=== PATIENT | male | born 1965 | race African-American/Black ===

== ENCOUNTER 2017-02-22 16:19 | Emergency (ER) | payer MEDICAID ==
--- NOTE | 2017-02-22 17:34 | RAD ---
INDICATION: Right elbow pain. TECHNIQUE: 4 views of the right elbow were obtained. FINDINGS: The bones are in normal alignment. No joint effusion or fracture is seen. There is a mildly prominent bony exostosis arising from the proximal olecranon process in the region of the triceps tendon insertion. There is a small area of linear calcification adjacent to the lateral epicondyle suggestive of calcific tendinitis. IMPRESSION: FINDINGS SUGGESTIVE OF CALCIFIC TENDINITIS.
--- NOTE | 2017-02-22 17:44 | ED ---
Upper Extremity Pain - HPI Summary HPI Summary: PATIENT IS AN OTHERWISE HEALTHY 51YO M WORKING AT THE [employer] ARRIVING HERE WITH NEW ONSET RIGHT ELBOW PAIN. HE STATES IT IS PAINFUL TO FLEX, EXTEND AND ROTATE. PAIN IS WORSE WITH ROTATION AND PALPATION SUPERIOR TO THE ELBOW JOINT. HE DENIES HISTORY OF GOUT, BURSITIS OR PREVIOUS INJURY TO THE ELBOW. HE FEELS THAT HE USES THE ELBOW DOING THE SAME MOTION DAILY AT WORK. PAIN IS WORSE ON THE LATERAL SIDE, AND NO PAIN ON PALPATION ON THE MEDIAL SIDE. DENIES OTHER PAIN OR SYMPTOMS. HE HAS NOT TAKEN ANYTHING FOR RELIEF. DENIES KNOWN TRAUMA OR INJURY TO THE AREA. DENIES REDNESS OR WARMTH AROUND THE AREA. PATIENT IS A SMOKER AND NOT A DIABETIC. - History of Current Complaint Chief Complaint: EDExtremityUpper Stated Complaint: RT ELBOW PAIN Time Seen by Provider: 02/22/17 17:33 Hx Obtained From: Patient Onset/Duration: Started Hours Ago Timing: Constant Severity Initially: Moderate Severity Currently: Moderate Pain Location: Elbow Character: Sharp Aggravating Factor(s): Lifting, Flexion, Extension, Internal/External Rotation Alleviating Factor(s): Nothing Associated Signs & Symptoms: Positive: Negative - Risk Factors Non-Orthopedic Risk Factor: Negative DVT Risk Factors: Negative Septic Arthritis Risk Factor: Negative Compartment Syndrome Risk Factors: Pain - Allergies/Home Medications Allergies/Adverse Reactions: Allergies Allergy/AdvReac Type Severity Reaction Status Date / Time No Known Allergies Allergy Verified 04/16/13 18:39 PMH/Surg Hx/FS Hx/Imm Hx Previously Healthy: Yes Endocrine/Hematology History: Reports: Hx Thyroid Disease - HYPERTHYROIDISM Denies: Hx Diabetes Cardiovascular History: Reports: Hx Angina, Hx Syncope Denies: Hx Coronary Artery Disease, Hx Hypercholesterolemia, Hx Hypertension , Hx Myocardial Infarction, Hx Valvular Heart Disease Respiratory History: Reports: Other Respiratory Problems/Disorders - CURRENT SMOKER Denies: Hx Asthma, Hx Chronic Obstructive Pulmonary Disease (COPD) Infectious Disease History: No Infectious Disease History: Denies: Traveled Outside the [place] in Last 30 Days - Social History Occupation: Employed Full-time Lives: Alone Alcohol Use: None Hx Substance Use: Yes Substance Use Type: Reports: Cocaine Hx Tobacco Use: Yes Review of Systems Constitutional: Negative Cardiovascular: Negative Respiratory: Negative Positive: Arthralgia - RIGHT ELBOW PAIN Skin: Negative Neurological: Negative Psychological: Normal All Other Systems Reviewed And Are Negative: Yes Physical Exam Triage Information Reviewed: Yes Vital Signs On Initial Exam: Initial Vitals Temp Pulse Resp BP Pulse Ox 97.9 F 70 20 158/73 100 02/22/17 16:22 02/22/17 16:22 02/22/17 16:22 02/22/17 16:22 02/22/17 16:22 Vital Signs Reviewed: Yes Appearance: Positive: Well-Appearing, No Pain Distress, Well-Nourished Skin: Positive: Warm, Skin Color Reflects Adequate Perfusion Head/Face: Positive: Normal Head/Face Inspection Neck: Positive: Supple, Nontender, No Lymphadenopathy Respiratory/Lung Sounds: Positive: Clear to Auscultation, Breath Sounds Present Cardiovascular: Positive: Normal, RRR Musculoskeletal: Positive: Limited @ - ROTATING ABOUT THE ELBOW, SUPINATION AND PRONATION WELL FLEXION AND EXTENSION LIMITED D/T PAIN Neurological: Positive: Sensory/Motor Intact, Speech Normal Psychiatric: Positive: Normal AVPU Assessment: Alert Diagnostics - Vital Signs Vital Signs Temp Pulse Resp BP Pulse Ox 02/22/17 16:22 97.9 F 70 20 158/73 100 - Laboratory Lab Statement: Any lab studies that have been ordered have been reviewed, and results considered in the medical decision making process. Course/Dx - Course Course Of Treatment: Patient complaining of extraarticular lateral elbow pain. Pain is exacerbated by contraction and passive flexion of both the wrist extensor muscles or flexor muscles. Denies trauma or injury to the area, but was sent for xray d/t limited ROM. IMPRESSION: FINDINGS SUGGESTIVE OF CALCIFIC TENDINITIS. Patient given instructions for overuse injuries and lateral epicondylitis. Instructions to get elbow brace, reduce repetitive movements, prescribed mobic. Patient will follow up with . - Diagnoses Differential Diagnosis/HQI/PQRI: Positive: Arthritis, Septic Arthritis, Strain, Sprain Provider Diagnoses: Calcific tendinitis Discharge - Discharge Plan Condition: Stable Disposition: HOME Prescriptions: Meloxicam(NF) [Mobic(NF)] 15 mg PO DAILY #30 tab Patient Education Materials: Tennis Elbow (ED), Calcific Tendinitis (ED) Referrals: Alee Delgadillo MD [Primary Care Provider] - Luis A Dubois MD [Medical Doctor] - Additional Instructions: DX: CALCIFIC TENDINITIS OF THE ELBOW I HAVE GIVEN YOU INFORMATION ON TENDINITIS. IT IS FOR THE SHOULDER, BUT YOU MAY APPLY THE SAME CONCEPTS TO THE ELBOW. FOLLOW THOSE INSTRUCTIONS. TRY TO ADAPT HOW YOU USE THE ARM, AND DECREASE THE AMOUNT OF REPETITIVE MOTION. MOBIC PRESCRIBED. TAKE IN THE MORNING. I WILL REFER YOU TO DR. DUBOIS FOR FURTHER EVALUATION. IF YOU CALL TOMORROW, YOU MAY SET UP AN APPT WITH HIS OFFICE. BUY A TENNIS ELBOW BRACE AND WEAR DAILY, ESPECIALLY AT WORK.
[2017-02-22 18:06] VITALS: BP 154/68
== END 2017-02-22 18:55 | disposition home or self-care (01) ==
LOC: ED 16:19
DX: M65.20 Calcific tendinitis, unspecified site (principal); M25.521 Pain in right elbow
CPT/HCPCS: 99282

== ENCOUNTER 2024-06-04 11:01 | Inpatient (IN) ==
[2024-06-04 11:40] LABS: ABS Basophils 0.1 10^3/uL (0.0-0.1); ABS Lymphocytes 1.5 10^3/uL (1.0-4.8); ABS Monocytes 0.7 10^3/uL (0.0-1.1); ABS Nucleated RBC 0.01 10^3/ul; Eosinophil % 0.4 %; Hematocrit 40.9 % (38-53); Hemoglobin 14.1 g/dL (13.2-16.3); Lymphocyte % 13.5 %; Mean Corpuscular Hemoglobin 31.4 pg (27-33); Mean Corpuscular Hgb Conc 34.5 g/dL (31-36); Mean Corpuscular Volume 91.1 fL (80-97); Mean Platelet Volume 8.3 fL (7.5-11.2); Nucleated Red Blood Cells % 0.1 %/100WBC (0.0-0.8); Platelet Count 309 10^3/uL (150-450); Red Cell Distribution Width 13.2 % (12-17); White Blood Count 11.3 10^3/uL (3.6-10.2)
[2024-06-04] MEDS: [UNRECOGNIZED DRUG - REMARK] INTRANASAL ONE (11:43)
[2024-06-04] MEDS: Ondansetron 4 mg VIAL 2 MG/ML 2 ml VIAL IV ONE ×3 (11:44→15:04)
[2024-06-04] MEDS: NS 0.9% 1000 ml BAG 1,000 ML IV ONE (11:44)
[2024-06-04 12:05] LABS: High Sens Troponin Baseline 14 pg/mL (<20)
[2024-06-04 12:22] LABS: INR 1.25 (0.83-1.13)
[2024-06-04 12:46] LABS: ALT 17 U/L (7-52); Acetaminophen < 15 mcg/mL; Albumin 4.4 g/dL (3.2-5.2); Albumin/Globulin Ratio 0.9 (1-3); Alcohol, S < 13 mg/dL (<13); Alkaline Phosphatase 104 U/L (35-149); Anion Gap 14 mmol/L (2-16); Blood Urea Nitrogen 14 mg/dL (6-24); CO2 Carbon Dioxide 28 mmol/L (22-32); Calcium 10.2 mg/dL (8.6-10.3); Chloride 90 mmol/L (101-111); Creatine Kinase 299 U/L (10-223); Glucose 84 mg/dL (70-100); Salicylate < 2.50 mg/dL (<30); Sodium 132 mmol/L (135-145); Total Bilirubin 0.8 mg/dL (0.2-1.0); Total Protein 9.4 g/dL (6.4-8.9); eGFR CKD-EPI 78.3 (>60)
[2024-06-04] MEDS: DICYCLOMINE HCL 10 MG/ML VIAL (20 MG) IM ONE (12:58)
[2024-06-04] MEDS: Dexamethasone IV 4 MG/ML VIAL 1 ml VIAL IV SLOW PU ONE (12:59)
[2024-06-04] MEDS: Droperidol 5 MG/2 ML 2 ML VIAL IV ONE (12:59)
[2024-06-04 13:18] LABS: High Sensitivity Troponin 1 Hr 15 pg/mL (<20)
[2024-06-04] MEDS: Buprenorp/Nalox 4-1 MG FILM SL ONE ×5 (13:23→23:08)
[2024-06-04] MEDS: Diphenoxylat/Atrop 2.5-0.025mg TAB PO ONE (15:04)
[2024-06-04] MEDS: hydrALAZINE 20 mg/ml 1 ML Vial IV IV SLOW PU ONE (16:04)
[2024-06-04 17:11] LABS: C Reactive Protein 6.66 mg/L (<8.01)
[2024-06-04 17:25] LABS: TSH Ultra Thyroid Stim Horm 1.16 mcIU/mL (0.34-5.60)
[2024-06-04 17:26] LABS: Lipase 23 U/L (11.0-82.0)
[2024-06-04] MEDS: NS 0.9% 1000 ml BAG 1,000 ML IV SCH (17:58)
[2024-06-04] MEDS: Lactated Ringers 1000 ml BAG 1,000 ML IV SCH (18:12)
[2024-06-04] MEDS: Enoxaparin 40 MG/0.4 ML SYR SUBCUT SCH (19:43)
[2024-06-04 21:48] LABS: Magnesium 1.6 mg/dL (1.9-2.7)
[2024-06-04] MEDS ORDERED: diazePAM INJ CARPUJECT 5 MG/ML SYRINGE IV PRN (22:29)
[2024-06-04] MEDS: diazePAM INJ CARPUJECT 5 MG/ML SYRINGE IV ONE (22:33)
[2024-06-04] MEDS ORDERED: Lorazepam PYXIS KEY PRN (23:48)
[2024-06-05] MEDS: BUPRENORPHINE HCL IV ONE (00:05)
[2024-06-05] MEDS: NS IV ONE (00:05)
[2024-06-05] MEDS: Ondansetron 4 mg VIAL 2 MG/ML 2 ml VIAL IV PRN (01:16)
[2024-06-05] MEDS: LORazepam 2 mg VIAL 1 ml IV PUSH PRN (01:19)
[2024-06-05] MEDS: hydrALAZINE 20 mg/ml 1 ML Vial IV IV SLOW PU PRN ×4 (01:41→19:19)
[2024-06-05] MEDS: hydrALAZINE 20 mg/ml 1 ML Vial IV ONE (02:16)
[2024-06-05] MEDS: Acetaminophen IV 1 GM/100ML 1,000 MG/100 ML BAG IV ONE (04:48)
[2024-06-05] MEDS: cloNIDine 0.1 MG PATCH 0.1 MG/24 HR 7 DAY PATCH TRANSDERM SCH (05:32)
[2024-06-05 06:22] LABS: Hematocrit 35.3 % (38-53); Hemoglobin 12.2 g/dL (13.2-16.3); Mean Corpuscular Hemoglobin 31.2 pg (27-33); Mean Corpuscular Hgb Conc 34.6 g/dL (31-36); Mean Corpuscular Volume 90.2 fL (80-97); Mean Platelet Volume 8.4 fL (7.5-11.2); Platelet Count 269 10^3/uL (150-450); Red Blood Count 3.91 10^6/uL (4.06-5.63); Red Cell Distribution Width 13.1 % (12-17); White Blood Count 12.1 10^3/uL (3.6-10.2)
[2024-06-05 06:32] LABS: Calcium 9.3 mg/dL (8.6-10.3); Creatinine, Serum 1.12 mg/dL (0.67-1.17); Magnesium 1.6 mg/dL (1.9-2.7); Phosphorus 3.4 mg/dL (2.5-5.0); Potassium 3.5 mmol/L (3.5-5.0); eGFR CKD-EPI 76.6 (>60)
[2024-06-05 07:21] LABS: Hepatitis B Surface Antigen Nonreactive (Nonreactive)
[2024-06-05 07:38] LABS: Hepatitis B Surface Ab Not Immune (Immune)
[2024-06-05 07:43] LABS: ABS Lymphocytes 1.1 10^3/uL (1.0-4.8); ABS Monocytes 1.6 10^3/uL (0.0-1.1); ABS Neutrophils 9.5 10^3/uL (1.5-7.6); Lymphocyte % 8.9 %
[2024-06-05] MEDS ORDERED: hydrALAZINE 20 mg/ml 1 ML Vial IV IV SLOW PU PRN (11:33)
[2024-06-05] MEDS: Magnesium Sulfate 2 gm BAG 2 GM/50 ML BAG IVPB ONE (11:59)
[2024-06-05] MEDS: Lactated Ringers 1000 ml BAG 1,000 ML IV SCH (16:17)
[2024-06-06 06:14] LABS: ABS Lymphocytes 1.3 10^3/uL (1.0-4.8); ABS Neutrophils 9.6 10^3/uL (1.5-7.6); ABS Nucleated RBC 0.01 10^3/ul; Hematocrit 35.5 % (38-53); Hemoglobin 11.9 g/dL (13.2-16.3); Lymphocyte % 10.8 %; Mean Corpuscular Hemoglobin 30.7 pg (27-33); Mean Corpuscular Hgb Conc 33.5 g/dL (31-36); Mean Corpuscular Volume 91.8 fL (80-97); Mean Platelet Volume 8.3 fL (7.5-11.2); Nucleated Red Blood Cells % 0.1 %/100WBC (0.0-0.8); Platelet Count 263 10^3/uL (150-450); Red Blood Count 3.87 10^6/uL (4.06-5.63); Red Cell Distribution Width 13.5 % (12-17); White Blood Count 11.9 10^3/uL (3.6-10.2)
[2024-06-06 06:35] LABS: Calcium 8.9 mg/dL (8.6-10.3); Creatinine, Serum 0.86 mg/dL (0.67-1.17); Potassium 3.2 mmol/L (3.5-5.0)
[2024-06-06 07:27] LABS: Magnesium 1.9 mg/dL (1.9-2.7); Phosphorus 3.6 mg/dL (2.5-5.0)
[2024-06-06] MEDS: Potassium Chlor 20 meq TAB.ER PO ONE (08:50)
[2024-06-06] MEDS: Buprenorp/Nalox 4-1 MG FILM SL SCH (11:17)
[2024-06-06 20:40] LABS: Urine Appearance Extra Turbid; Urine Bilirubin Negative (Negative); Urine Blood Negative (Negative); Urine Glucose Negative (Negative); Urine Ketones 1+ (Negative); Urine Nitrite Negative (Negative); Urine Protein Negative (Negative); Urine Specific Gravity 1.013 (1.002-1.030); Urine Urobilinogen 1+ (Negative); Urine pH 7.5 (5.0-8.0)
[2024-06-06 20:51] LABS: Urine Color Light-Yellow
[2024-06-06 21:19] LABS: Urine Benzodiazepine Screen None Detected (None Detect); Urine Cannabinoids Screen None Detected (None Detect); Urine Opiates Screen None Detected (None Detect)
[2024-06-07 06:13] LABS: ABS Lymphocytes 1.3 10^3/uL (1.0-4.8); ABS Monocytes 0.8 10^3/uL (0.0-1.1); ABS Neutrophils 8.6 10^3/uL (1.5-7.6); Eosinophil % 0.2 %; Hematocrit 35.8 % (38-53); Hemoglobin 11.7 g/dL (13.2-16.3); Lymphocyte % 12.4 %; Mean Corpuscular Hemoglobin 30.4 pg (27-33); Mean Corpuscular Hgb Conc 32.7 g/dL (31-36); Mean Corpuscular Volume 92.9 fL (80-97); Mean Platelet Volume 8.4 fL (7.5-11.2); Platelet Count 232 10^3/uL (150-450); Red Blood Count 3.85 10^6/uL (4.06-5.63); Red Cell Distribution Width 13.7 % (12-17); White Blood Count 10.8 10^3/uL (3.6-10.2)
[2024-06-07 06:57] LABS: Creatinine, Serum 0.79 mg/dL (0.67-1.17); Magnesium 1.9 mg/dL (1.9-2.7); Potassium 3.6 mmol/L (3.5-5.0); eGFR CKD-EPI 103.6 (>60)
[2024-06-07] MEDS: Buprenorp/Nalox 8-2 MG FILM SL SCH (10:07)
[2024-06-08 06:38] LABS: ABS Eosinophils 0.1 10^3/uL (0.0-0.5); ABS Monocytes 0.6 10^3/uL (0.0-1.1); ABS Neutrophils 5.1 10^3/uL (1.5-7.6); ABS Nucleated RBC 0.01 10^3/ul; Eosinophil % 1.1 %; Hematocrit 36.9 % (38-53); Hemoglobin 12.6 g/dL (13.2-16.3); Lymphocyte % 25.6 %; Mean Corpuscular Hemoglobin 31.6 pg (27-33); Mean Corpuscular Hgb Conc 34.1 g/dL (31-36); Mean Corpuscular Volume 92.4 fL (80-97); Mean Platelet Volume 8.6 fL (7.5-11.2); Nucleated Red Blood Cells % 0.2 %/100WBC (0.0-0.8); Platelet Count 224 10^3/uL (150-450); Red Blood Count 3.99 10^6/uL (4.06-5.63); Red Cell Distribution Width 13.2 % (12-17); White Blood Count 7.9 10^3/uL (3.6-10.2)
[2024-06-08 06:55] LABS: Magnesium 1.8 mg/dL (1.9-2.7); Phosphorus 2.9 mg/dL (2.5-5.0)
[2024-06-08] MEDS: Magnesium Sulfate 2 gm BAG 2 GM/50 ML BAG IVPB ONE (08:09)
[2024-06-08 08:55] LABS: Albumin 3.5 g/dL (3.2-5.2); Creatinine, Serum 0.65 mg/dL (0.67-1.17); Globulin 3.5 g/dL (2-4); Potassium 3.5 mmol/L (3.5-5.0); Total Bilirubin 0.9 mg/dL (0.2-1.0); eGFR CKD-EPI 109.9 (>60)
[2024-06-08 14:16] VITALS: BP 164/81
[2024-06-09] MEDS ORDERED: Naloxone Nasal Spray 4 MG/0.1 ML NASAL.SPR INTRANASAL ONE (00:35)
== END 2024-06-08 15:07 | disposition home or self-care (01) | DRG 773 ==
LOC: ED 11:01 → EDHOLD 11:01 → MED 21:22
PROVIDERS: ADMIT Student in an Organized Health Care Education/Training Program; ATTEND Student in an Organized Health Care Education/Training Program

== ENCOUNTER 2024-08-16 10:02 | Inpatient (IN) ==
[2024-08-16 10:34] LABS: Hematocrit 49.2 % (38-53); Hemoglobin 16.6 g/dL (13.2-16.3); Mean Corpuscular Hemoglobin 31.1 pg (27-33); Mean Corpuscular Hgb Conc 33.8 g/dL (31-36); Mean Corpuscular Volume 92.3 fL (80-97); Platelet Count 304 10^3/uL (150-450); Red Blood Count 5.33 10^6/uL (4.06-5.63); White Blood Count 31.2 10^3/uL (3.6-10.2)
[2024-08-16] MEDS: Lactated Ringers 1000 ml BAG 1,000 ML IV ONE ×2 (10:57→14:17)
[2024-08-16] MEDS: Acetaminophen IV 1 GM/100ML 1,000 MG/100 ML BAG IV ONE (10:57)
[2024-08-16 11:00] LABS: ABS Basophils 0.1 10^3/uL (0.0-0.1); ABS Monocytes 0.8 10^3/uL (0.0-1.1); ABS Neutrophils 29.3 10^3/uL (1.5-7.6); Eosinophil % 0.1 %; Lymphocyte % 3.1 %
[2024-08-16 11:15] LABS: ALT 10 U/L (7-52); AST 27 U/L (13-39); Albumin 4.9 g/dL (3.2-5.2); Albumin/Globulin Ratio 1.1 (1-3); Alcohol, S < 13 mg/dL (<13); Alkaline Phosphatase 92 U/L (35-149); Anion Gap 20 mmol/L (2-16); Blood Urea Nitrogen 33 mg/dL (6-24); CO2 Carbon Dioxide 27 mmol/L (22-32); Calcium 10.6 mg/dL (8.6-10.3); Chloride 93 mmol/L (101-111); Creatine Kinase 97 U/L (10-223); Creatinine, Serum 1.27 mg/dL (0.67-1.17); Globulin 4.3 g/dL (2-4); Glucose 149 mg/dL (70-100); Potassium 3.9 mmol/L (3.5-5.0); Sodium 140 mmol/L (135-145); Total Protein 9.2 g/dL (6.4-8.9); eGFR CKD-EPI 65.5 (>60)
[2024-08-16] MEDS: Ondansetron 4 mg VIAL 2 MG/ML 2 ml VIAL IV ONE (11:25)
[2024-08-16] MEDS: Iohexol 350 (CONTRAST) 500 ML MDV IV ONE (12:02)
[2024-08-16] MEDS ORDERED: Lorazepam PYXIS KEY PRN (12:44)
[2024-08-16] MEDS ORDERED: Ondansetron 4 mg VIAL 2 MG/ML 2 ml VIAL ONE (12:55)
[2024-08-16] MEDS ORDERED: Lidocaine 1% VIAL 10 MG/ML 30 ML VIAL ONE (13:03)
[2024-08-16] MEDS: LORazepam 2 mg VIAL 1 ml IV PUSH ONE (13:03)
[2024-08-16] MEDS ORDERED: Ampicillin IV 2 GM in NS 0.9% 100 ml BAG 100 ML IVPB ONE (13:53)
[2024-08-16] MEDS: Lidocaine 1% MPF 5 ML VIAL INJ ONE (13:55)
[2024-08-16] MEDS ORDERED: Vancomycin 1,000 MG VIAL IVPB SCH (14:00)
[2024-08-16 14:08] LABS: Body Fluid Source Cerebral Spinal
[2024-08-16 14:12] LABS: Body Fluid Appearance Clear; Body Fluid Color Colorless; CSF Tube # 4
[2024-08-16 14:24] LABS: CSF Glucose 97 mg/dL (40-70)
[2024-08-16] MEDS: cefTRIAXone 2 gm/50 mL D5W 2 GM/50 ML BAG IV ONE (14:31)
[2024-08-16 15:22] LABS: C Reactive Protein 24.11 mg/L (<8.01)
[2024-08-16] MEDS: Labetalol IV 5 MG/ML 20 ml VIAL IV PUSH ONE ×2 (15:34→16:56)
[2024-08-16 15:43] LABS: Folate > 20.00 ng/mL (5.90-24.80)
[2024-08-16] MEDS: Tetan/Diph/Pertus SYR(Tdap) 0.5 ML SYR(BOOSTRIX) use SYR contains LATEX IM ONE (15:43)
[2024-08-16 15:44] LABS: Vitamin B12 707 pg/mL (180-914)
[2024-08-16 15:47] LABS: Body Fluid Mono 19 %; Body Fluid Total Cells Counted 26
[2024-08-16 15:54] LABS: Venous Bicarbonate HCO3 30.7 mmol/L (24-28)
[2024-08-16] MEDS: Ampicillin ADVAN 2 GM in NS 0.9% 100 ML 100 ML IVPB ONE (15:58)
[2024-08-16] MEDS: Pantoprazole VIAL 40 MG VIAL IV ONE (16:00)
[2024-08-16 16:01] LABS: ABS Lymphocytes 0.8 10^3/uL (1.0-4.8); ABS Monocytes 0.9 10^3/uL (0.0-1.1); ABS Neutrophils 16.4 10^3/uL (1.5-7.6); ABS Nucleated RBC 0.01 10^3/ul; Hematocrit 42.3 % (38-53); Hemoglobin 14.1 g/dL (13.2-16.3); Lymphocyte % 4.4 %; Mean Corpuscular Hemoglobin 30.8 pg (27-33); Mean Corpuscular Hgb Conc 33.4 g/dL (31-36); Mean Corpuscular Volume 92.2 fL (80-97); Platelet Count 219 10^3/uL (150-450); Red Blood Count 4.59 10^6/uL (4.06-5.63); Red Cell Distribution Width 13.7 % (12-17); White Blood Count 18.2 10^3/uL (3.6-10.2)
[2024-08-16 16:06] LABS: Urine Appearance Clear; Urine Bacteria Absent /HPF (Absent); Urine Bilirubin Negative (Negative); Urine Blood 2+ (Negative); Urine Color Yellow; Urine Glucose Negative (Negative); Urine Ketones 1+ (Negative); Urine Nitrite Negative (Negative); Urine Protein 2+ (>=100 mg/dL) (Negative); Urine Red Blood Cell 2+(6-10/hpf) /HPF (0-Trace); Urine Specific Gravity >1.050 (1.002-1.030); Urine Squamous Epithelial Cell Present /HPF (Absent); Urine Urobilinogen Negative (Negative); Urine White Blood Cell Absent /HPF (0-Trace)
[2024-08-16] MEDS: MULTIPLE ELECTROLYTES IV ONE (16:07)
[2024-08-16 16:27] LABS: Urine Benzodiazepine Screen Presumptive Positive (None Detect); Urine Cannabinoids Screen None Detected (None Detect); Urine Opiates Screen Presumptive Positive (None Detect)
[2024-08-16] MEDS: Vancomycin 1,250 MG in NS 0.9% 250 ml 250 ML IVPB ONE (16:57)
[2024-08-16] MEDS: Lactated Ringers 1000 ml BAG 1,000 ML IV SCH ×2 (17:06→18:37)
[2024-08-16 17:11] LABS: High Sensitivity Troponin 1 Hr 70 pg/mL (<20)
[2024-08-16] MEDS ORDERED: Sulfur Hexaflouride MICROSPHR 25 MG VIAL IV PRN (17:22)
[2024-08-16] MEDS ORDERED: hydrALAZINE 20 mg/ml 1 ML Vial IV IV SLOW PU PRN (18:00)
[2024-08-16 18:09] LABS: CSF Body Fluid WBC 76 /mcL
[2024-08-16] MEDS ORDERED: Acyclovir IV 500 MG/10 ML VIAL IVPB ONE (18:14)
[2024-08-16 18:41] LABS: High Sensitivity Troponin 3 Hr 58 pg/mL (<20)
[2024-08-16] MEDS: Azithromycin 500 mg/250 ml NS 500 MG/250 ML BAG IVPB SCH (18:43)
[2024-08-16] MEDS: hydrALAZINE 20 mg/ml 1 ML Vial IV IV SLOW PU PRN (19:21)
[2024-08-16] MEDS: Acyclovir IV 520 MG in NS 0.9% 100 ml BAG 100 ML IVPB ONE (19:27)
[2024-08-16] MEDS: Pantoprazole VIAL 40 MG VIAL IV SCH (21:17)
[2024-08-17] MEDS: Acyclovir IV 500 MG in NS 0.9% 100 ml BAG 100 ML IVPB ONE (03:49)
[2024-08-17 06:54] LABS: ABS Lymphocytes 1.1 10^3/uL (1.0-4.8); ABS Monocytes 0.9 10^3/uL (0.0-1.1); Hematocrit 41.1 % (38-53); Lymphocyte % 6.3 %; Mean Corpuscular Hemoglobin 31.6 pg (27-33); Mean Corpuscular Volume 93.1 fL (80-97); Mean Platelet Volume 9.2 fL (7.5-11.2); Platelet Count 207 10^3/uL (150-450); Red Blood Count 4.41 10^6/uL (4.06-5.63); White Blood Count 18.1 10^3/uL (3.6-10.2)
[2024-08-17 07:49] LABS: ALT 9 U/L (7-52); Albumin 3.7 g/dL (3.2-5.2); Albumin/Globulin Ratio 1.1 (1-3); Alkaline Phosphatase 67 U/L (35-149); Anion Gap 12 mmol/L (2-16); Blood Urea Nitrogen 19 mg/dL (6-24); CO2 Carbon Dioxide 29 mmol/L (22-32); Chloride 101 mmol/L (101-111); Creatinine, Serum 0.91 mg/dL (0.67-1.17); Globulin 3.3 g/dL (2-4); Glucose 102 mg/dL (70-100); Sodium 142 mmol/L (135-145); Total Bilirubin 0.9 mg/dL (0.2-1.0); eGFR CKD-EPI 97.7 (>60)
[2024-08-17 09:58] LABS: Potassium Redraw 3.4 mmol/L (3.5-5.0)
[2024-08-17] MEDS: Acyclovir IV 500 MG in NS 0.9% 100 ml BAG 100 ML IVPB SCH (11:12)
[2024-08-17] MEDS: KCL 10 MEQ/50 ML IVPREMIX 10 MEQ/50 ML BAG IV SCH (11:58)
[2024-08-17] MEDS: KCL 20 MEQ/100 ML IVPREMIX 20 MEQ/100 ML BAG IV SCH (12:24)
[2024-08-17] MEDS: cefTRIAXone 1 gm/50 mL D5W 1 GM/50 ML BAG IV SCH (14:55)
[2024-08-17] MEDS: Ondansetron 4 mg VIAL 2 MG/ML 2 ml VIAL IV PRN (15:14)
[2024-08-17] MEDS: cefTRIAXone 1 gm/50 mL D5W 1 GM/50 ML BAG IV ONE (17:28)
[2024-08-17] MEDS: Lactated Ringers 1000 ml BAG 1,000 ML IV SCH (17:29)
[2024-08-17 19:38] LABS: PCO2 Arterial 33 mmHg (35-45)
[2024-08-17 19:43] LABS: PO2 Arterial 59 mmHg (80-100)
[2024-08-17 21:48] LABS: PCO2 Arterial 30 mmHg (35-45)
[2024-08-17 21:51] LABS: PO2 Arterial 59 mmHg (80-100)
[2024-08-18 00:24] LABS: ABS Monocytes 0.9 10^3/uL (0.0-1.1); ABS Neutrophils 13.3 10^3/uL (1.5-7.6); ABS Nucleated RBC 0.01 10^3/ul; Hematocrit 40.3 % (38-53); Hemoglobin 13.2 g/dL (13.2-16.3); Lymphocyte % 6.4 %; Mean Corpuscular Hemoglobin 30.8 pg (27-33); Mean Corpuscular Hgb Conc 32.7 g/dL (31-36); Mean Corpuscular Volume 94.3 fL (80-97); Mean Platelet Volume 8.5 fL (7.5-11.2); Nucleated Red Blood Cells % 0.1 %/100WBC (0.0-0.8); Platelet Count 174 10^3/uL (150-450); Red Blood Count 4.28 10^6/uL (4.06-5.63); Red Cell Distribution Width 13.9 % (12-17); White Blood Count 15.2 10^3/uL (3.6-10.2)
[2024-08-18 01:00] LABS: Calcium 8.9 mg/dL (8.6-10.3); Creatinine, Serum 0.89 mg/dL (0.67-1.17); Potassium 3.5 mmol/L (3.5-5.0); eGFR CKD-EPI 99.3 (>60)
[2024-08-18] MEDS: Iohexol 350 (CONTRAST) 500 ML MDV IV ONE (02:15)
[2024-08-18] MEDS: cefTRIAXone 2 gm/50 mL D5W 2 GM/50 ML BAG IV SCH (03:08)
[2024-08-18] MEDS: Acetaminophen IV 1 GM/100ML 1,000 MG/100 ML BAG IV PRN (03:28)
[2024-08-18] MEDS: hydrALAZINE 20 mg/ml 1 ML Vial IV IV SLOW PU ONE (03:51)
[2024-08-18] MEDS: Labetalol IV 5 MG/ML 20 ml VIAL IV PUSH ONE ×2 (05:05→15:12)
[2024-08-18 06:22] LABS: ABS Basophils 0.1 10^3/uL (0.0-0.1); ABS Lymphocytes 0.7 10^3/uL (1.0-4.8); ABS Monocytes 1.1 10^3/uL (0.0-1.1); ABS Neutrophils 17.3 10^3/uL (1.5-7.6); Eosinophil % 0.1 %; Hematocrit 39.1 % (38-53); Hemoglobin 13.1 g/dL (13.2-16.3); Lymphocyte % 3.6 %; Mean Corpuscular Hemoglobin 30.9 pg (27-33); Mean Corpuscular Hgb Conc 33.5 g/dL (31-36); Mean Corpuscular Volume 92.1 fL (80-97); Mean Platelet Volume 8.7 fL (7.5-11.2); Platelet Count 190 10^3/uL (150-450); Red Blood Count 4.25 10^6/uL (4.06-5.63); Red Cell Distribution Width 13.9 % (12-17); White Blood Count 19.2 10^3/uL (3.6-10.2)
[2024-08-18 07:08] LABS: Calcium 8.7 mg/dL (8.6-10.3); Creatinine, Serum 0.86 mg/dL (0.67-1.17); Potassium 3.2 mmol/L (3.5-5.0); eGFR CKD-EPI 100.4 (>60)
[2024-08-18] MEDS: KCL premix 10 MEQ/50 ML x 2 BAGS IV SCH ×2 (09:50→15:07)
[2024-08-18] MEDS: Enalaprilat IV 1.25 mg/ml 1 ml VIAL (1.25 MG) IV PRN (10:02)
[2024-08-18 10:32] LABS: PCO2 Arterial 31 mmHg (35-45); PO2 Arterial 68 mmHg (80-100)
[2024-08-18] MEDS ORDERED: Lorazepam PYXIS KEY PRN (11:30)
[2024-08-18] MEDS ORDERED: Zosyn per Pharmacy NOTE FOLLOW UP SCH (12:00)
[2024-08-18] MEDS ORDERED: Vancomycin 2,000 MG in NS 0.9% 500 ml BAG 500 ML IVPB SCH (12:00)
[2024-08-18] MEDS: niCARdipine 0.1MG/ML IVPREMIX 20 MG/200 ML BAG IV SCH (12:09)
[2024-08-18] MEDS: KCL 20 MEQ/100 ML IVPREMIX 20 MEQ/100 ML BAG IV SCH (12:35)
[2024-08-18] MEDS: Midazolam PREMIXBAG 1 MG/ML NS 100 ML IV SCH ×2 (12:52→14:24)
[2024-08-18] MEDS ORDERED: Buprenorp/Nalox 4-1 MG FILM SL SCH (13:00)
[2024-08-18] MEDS: Ampicillin ADVAN 2 GM in NS 0.9% 100 ml BAG 100 ML IVPB SCH ×2 (13:35→14:00)
[2024-08-18] MEDS: Rocuronium 50 mg VIAL 10 mg/ml 5 ml VIAL (50 mg) ONE (13:45)
[2024-08-18] MEDS: fentaNYL 100 mcg/2 ml 50 MCG/ML VIAL IV SLOW PU ONE (13:45)
[2024-08-18] MEDS: Midazolam 5 mg/5 ml VIAL 1 mg/ml 5 ml VIAL (5 mg) IV SLOW PU ONE (13:57)
[2024-08-18] MEDS: LORazepam 2 mg VIAL 1 ml IV PUSH ONE (13:58)
[2024-08-18] MEDS: fentaNYL INFUSION 50 mcg/mL VL 2,500 MCG/50 ML VIAL IV SCH (13:59)
[2024-08-18] MEDS ORDERED: fentaNYL INFUSION 50 mcg/mL VL 2,500 MCG/50 ML VIAL IV SCH ×2 (14:00)
[2024-08-18] MEDS: Midazolam 5 mg/5 ml VIAL 1 mg/ml 5 ml VIAL (5 mg) ONE ×2 (14:03→15:13)
[2024-08-18] MEDS: Piperacillin/Tazobac 3.375 BAG 3.375 GM/100 ML BAG IV ONE (14:36)
[2024-08-18] MEDS: Midazolam 2 mg/2 ml VIAL 1 mg/ml 2 ml VIAL (2 mg) IV SLOW PU ONE ×2 (15:13→17:28)
[2024-08-18] MEDS: Vancomycin 1,250 MG in NS 0.9% 250 ml 250 ML IVPB ONE (15:27)
[2024-08-18 15:28] LABS: High Sensitivity Troponin 1 Hr 35 pg/mL (<20)
[2024-08-18] MEDS: Chlorhexidine MOUTHWASH 0.12% 15 ML UDC TOPICAL SCH (15:43)
[2024-08-18] MEDS: Propofol 10 mg/ml 100 ML BTL 1,000 MG/100 ML BTL IV SCH (17:30)
[2024-08-18] MEDS: Propofol 10 mg/ml 100 ML BTL 1,000 MG/100 ML BTL ONE (17:38)
[2024-08-18] MEDS: Midazolam 2 mg/2 ml VIAL 1 mg/ml 2 ml VIAL (2 mg) ONE (17:40)
[2024-08-18] MEDS: ZOSYN 3.375 GM Q8H per EXTENDED INFUSION IV SCH (20:16)
[2024-08-18] MEDS: Enoxaparin 40 MG/0.4 ML SYR SUBCUT SCH (21:37)
[2024-08-18] MEDS: Vancomycin 750 MG in NS 0.9% 250 ML IVPB SCH (22:35)
[2024-08-19 04:20] LABS: ABS Basophils 0.1 10^3/uL (0.0-0.1); ABS Lymphocytes 1.7 10^3/uL (1.0-4.8); ABS Monocytes 0.7 10^3/uL (0.0-1.1); ABS Neutrophils 10.4 10^3/uL (1.5-7.6); ABS Nucleated RBC 0.02 10^3/ul; Eosinophil % 0.3 %; Hematocrit 36.6 % (38-53); Hemoglobin 12.2 g/dL (13.2-16.3); Lymphocyte % 12.8 %; Mean Corpuscular Hemoglobin 31.3 pg (27-33); Mean Corpuscular Hgb Conc 33.3 g/dL (31-36); Mean Corpuscular Volume 93.8 fL (80-97); Mean Platelet Volume 8.3 fL (7.5-11.2); Nucleated Red Blood Cells % 0.1 %/100WBC (0.0-0.8); Platelet Count 169 10^3/uL (150-450)
[2024-08-19 05:34] LABS: Albumin 2.9 g/dL (3.2-5.2); Albumin/Globulin Ratio 1.2 (1-3); Creatinine, Serum 0.86 mg/dL (0.67-1.17); Globulin 2.4 g/dL (2-4); Phosphorus 2.9 mg/dL (2.5-5.0); Potassium 3.2 mmol/L (3.5-5.0); Total Bilirubin 1.1 mg/dL (0.2-1.0); Total Protein 5.3 g/dL (6.4-8.9); eGFR CKD-EPI 100.4 (>60)
[2024-08-19 08:26] LABS: Magnesium 1.7 mg/dL (1.9-2.7)
[2024-08-19 09:01] LABS: Resp Rate 16
[2024-08-19 09:03] LABS: PCO2 Arterial 39 mmHg (35-45); PO2 Arterial 73 mmHg (80-100)
[2024-08-19] MEDS: Potassium Chloride LIQUID 20 MEQ/15 ML LIQUID NG TUBE ONE (10:05)
[2024-08-19] MEDS: Magnesium Sulfate 2 gm BAG 2 GM/50 ML BAG IVPB ONE (10:05)
[2024-08-19] MEDS: Scopolamine 1 mg/72hr PATCH TRANSDERM SCH (10:05)
[2024-08-19] MEDS: KCL 20 MEQ/100 ML IVPREMIX 20 MEQ/100 ML BAG IV SCH (10:05)
[2024-08-19 11:19] LABS: HSV 1 PCR, CSF Negative (Negative); HSV 2 PCR, CSF Negative (Negative)
[2024-08-19] MEDS ORDERED: Vancomycin per Pharmacy 1 EA NOTE FOLLOW UP PRN (15:38)
[2024-08-19] MEDS: Vancomycin Trough Check NOTE FOLLOW UP ONE (15:50)
[2024-08-19] MEDS: Midazolam 2 mg/2 ml VIAL 1 mg/ml 2 ml VIAL (2 mg) IV SLOW PU PRN (22:14)
[2024-08-20] MEDS: hydrALAZINE 20 mg/ml 1 ML Vial IV IV SLOW PU ONE ×2 (00:01→02:43)
[2024-08-20] MEDS: Labetalol IV 5 MG/ML 20 ml VIAL IV PUSH ONE (00:09)
[2024-08-20] MEDS: Esmolol 10 MG/ML IVPREMIX 2,500 MG/250 ML BAG IV SCH (01:31)
[2024-08-20] MEDS: Esmolol 10 MG/ML IVPREMIX 2,500 MG/250 ML BAG IV ONE (01:32)
[2024-08-20 05:03] LABS: ABS Eosinophils 0.4 10^3/uL (0.0-0.5); ABS Lymphocytes 0.7 10^3/uL (1.0-4.8); ABS Monocytes 0.5 10^3/uL (0.0-1.1); Eosinophil % 3.7 %; Hematocrit 34.6 % (38-53); Hemoglobin 11.6 g/dL (13.2-16.3); Lymphocyte % 7.5 %; Mean Corpuscular Hemoglobin 31.4 pg (27-33); Mean Corpuscular Hgb Conc 33.4 g/dL (31-36); Mean Corpuscular Volume 93.9 fL (80-97); Mean Platelet Volume 8.3 fL (7.5-11.2); Platelet Count 173 10^3/uL (150-450); Red Blood Count 3.68 10^6/uL (4.06-5.63); White Blood Count 9.6 10^3/uL (3.6-10.2)
[2024-08-20] MEDS ORDERED: Vancomycin Trough Check NOTE FOLLOW UP ONE (05:30)
[2024-08-20 06:09] LABS: Albumin 2.8 g/dL (3.2-5.2); Albumin/Globulin Ratio 1.2 (1-3); Calcium 7.9 mg/dL (8.6-10.3); Creatinine, Serum 0.83 mg/dL (0.67-1.17); Globulin 2.3 g/dL (2-4); Magnesium 1.9 mg/dL (1.9-2.7); Phosphorus 2.9 mg/dL (2.5-5.0); Potassium 3.6 mmol/L (3.5-5.0); Total Bilirubin 0.4 mg/dL (0.2-1.0); Total Protein 5.1 g/dL (6.4-8.9); eGFR CKD-EPI 101.4 (>60)
[2024-08-20] MEDS: niCARdipine 0.1MG/ML IVPREMIX 20 MG/200 ML BAG IV SCH ×2 (11:10→17:18)
[2024-08-21 04:52] LABS: ABS Basophils 0.1 10^3/uL (0.0-0.1); ABS Eosinophils 0.5 10^3/uL (0.0-0.5); ABS Lymphocytes 1.5 10^3/uL (1.0-4.8); ABS Monocytes 0.7 10^3/uL (0.0-1.1); ABS Neutrophils 6.6 10^3/uL (1.5-7.6); Hematocrit 32.9 % (38-53); Hemoglobin 11.2 g/dL (13.2-16.3); Lymphocyte % 15.8 %; Mean Corpuscular Hemoglobin 31.9 pg (27-33); Mean Corpuscular Volume 93.6 fL (80-97); Platelet Count 187 10^3/uL (150-450); Red Blood Count 3.51 10^6/uL (4.06-5.63); Red Cell Distribution Width 13.6 % (12-17); White Blood Count 9.3 10^3/uL (3.6-10.2)
[2024-08-21 05:41] LABS: Albumin/Globulin Ratio 1.2 (1-3); Calcium 7.9 mg/dL (8.6-10.3); Creatinine, Serum 0.76 mg/dL (0.67-1.17); Globulin 2.5 g/dL (2-4); Magnesium 1.7 mg/dL (1.9-2.7); Phosphorus 2.1 mg/dL (2.5-5.0); Potassium 3.3 mmol/L (3.5-5.0); Total Bilirubin 0.6 mg/dL (0.2-1.0); Total Protein 5.5 g/dL (6.4-8.9); eGFR CKD-EPI 104.2 (>60)
[2024-08-21] MEDS ORDERED: Acetaminophen IV 1 GM/100ML 1,000 MG/100 ML BAG IV PRN (07:48)
[2024-08-21] MEDS: Magnesium Sulf 4 GM/100 ML IV 4,000 MG/100 ML BAG IVPB ONE (09:12)
[2024-08-21] MEDS: Potassium Phosphate IV 15 MMOL in NS 0.9% 250 ml 250 ML IVPB ONE (09:12)
[2024-08-21] MEDS: Vancomycin 1,000 MG in NS 0.9% 250 ml 250 ML IVPB ONE (10:43)
[2024-08-21] MEDS ORDERED: Vancomycin per Pharmacy 1 EA NOTE FOLLOW UP SCH (11:00)
[2024-08-21] MEDS ORDERED: Senna TAB 8.6 mg TAB PO PRN (15:43)
[2024-08-21] MEDS ORDERED: Methylnaltrexone SQ (NF) 12 MG/0.6 ML VIAL SUBCUT ONE (19:00)
[2024-08-21] MEDS ORDERED: Polyethylene Glycol 3350 17 GM PACKET PO SCH (21:00)
[2024-08-21] MEDS: Vancomycin 1,250 MG in NS 0.9% 250 ml 250 ML IVPB SCH (21:14)
[2024-08-21] MEDS: Lactated Ringers 1000 ml BAG 1,000 ML IV SCH (23:00)
[2024-08-22] MEDS: niCARdipine 0.1MG/ML IVPREMIX 20 MG/200 ML BAG IV SCH (01:31)
[2024-08-22 05:39] LABS: ABS Basophils 0.1 10^3/uL (0.0-0.1); ABS Eosinophils 0.2 10^3/uL (0.0-0.5); ABS Lymphocytes 1.3 10^3/uL (1.0-4.8); ABS Monocytes 0.9 10^3/uL (0.0-1.1); ABS Nucleated RBC 0.01 10^3/ul; Eosinophil % 1.2 %; Hematocrit 34.3 % (38-53); Hemoglobin 11.3 g/dL (13.2-16.3); Lymphocyte % 10.7 %; Mean Corpuscular Hgb Conc 32.9 g/dL (31-36); Mean Corpuscular Volume 94.1 fL (80-97); Mean Platelet Volume 8.5 fL (7.5-11.2); Nucleated Red Blood Cells % 0.1 %/100WBC (0.0-0.8); Platelet Count 275 10^3/uL (150-450); Red Blood Count 3.65 10^6/uL (4.06-5.63); Red Cell Distribution Width 13.8 % (12-17); White Blood Count 12.5 10^3/uL (3.6-10.2)
[2024-08-22] MEDS ORDERED: Lactated Ringers 1000 ml BAG 1,000 ML IV SCH (06:00)
[2024-08-22 06:02] LABS: Albumin 3.2 g/dL (3.2-5.2); Albumin/Globulin Ratio 1.2 (1-3); Calcium 8.2 mg/dL (8.6-10.3); Creatinine, Serum 0.74 mg/dL (0.67-1.17); Globulin 2.7 g/dL (2-4); Phosphorus 3.5 mg/dL (2.5-5.0); Potassium 3.3 mmol/L (3.5-5.0); Total Bilirubin 0.7 mg/dL (0.2-1.0); Total Protein 5.9 g/dL (6.4-8.9)
[2024-08-22] MEDS: KCL 20 MEQ/100 ML IVPREMIX 20 MEQ/100 ML BAG IV SCH (06:32)
[2024-08-22] MEDS ORDERED: Methylnaltrexone 150 MG TAB PO SCH (09:00)
[2024-08-22] MEDS ORDERED: Losartan/HCTZ 100/25 TAB (NF) PO SCH (09:00)
[2024-08-22] MEDS: METHYLNALTREXONE 12 MG/0.6 ML SUBCUT ONE (09:53)
[2024-08-23] MEDS: hydrALAZINE 20 mg/ml 1 ML Vial IV IV SLOW PU PRN (00:06)
[2024-08-23 06:42] LABS: Hemoglobin 13.6 g/dL (13.2-16.3); Mean Corpuscular Hemoglobin 33.5 pg (27-33); Mean Corpuscular Hgb Conc 35.7 g/dL (31-36); Red Blood Count 4.04 10^6/uL (4.06-5.63); Red Cell Distribution Width 13.8 % (12-17); White Blood Count 14.6 10^3/uL (3.6-10.2)
[2024-08-23 06:48] LABS: Albumin 3.1 g/dL (3.2-5.2); Albumin/Globulin Ratio 1.2 (1-3); Calcium 8.5 mg/dL (8.6-10.3); Creatinine, Serum 1.25 mg/dL (0.67-1.17); Globulin 2.6 g/dL (2-4); Potassium 3.4 mmol/L (3.5-5.0); Total Bilirubin 0.6 mg/dL (0.2-1.0); Total Protein 5.7 g/dL (6.4-8.9); eGFR CKD-EPI 66.7 (>60)
[2024-08-23 07:22] LABS: ABS Basophils 0.1 10^3/uL (0.0-0.1); ABS Eosinophils 0.1 10^3/uL (0.0-0.5); ABS Lymphocytes 1.5 10^3/uL (1.0-4.8); ABS Monocytes 1.7 10^3/uL (0.0-1.1); ABS Neutrophils 11.2 10^3/uL (1.5-7.6); ABS Nucleated RBC 0.01 10^3/ul; Eosinophil % 0.6 %; Lymphocyte % 10.3 %; Mean Platelet Volume 8.8 fL (7.5-11.2); Nucleated Red Blood Cells % 0.1 %/100WBC (0.0-0.8); Platelet Count 211 10^3/uL (150-450)
[2024-08-23] MEDS: Vancomycin Trough Check NOTE FOLLOW UP ONE (07:53)
[2024-08-23] MEDS: KCL 20 MEQ/100 ML IVPREMIX 20 MEQ/100 ML BAG IV SCH (10:55)
[2024-08-23] MEDS: Vancomycin 750 MG in NS 0.9% 250 ML IVPB SCH (17:29)
[2024-08-23] MEDS ORDERED: Vancomycin 1,250 MG in NS 0.9% 250 ml 250 ML IVPB ONE (18:00)
[2024-08-24] MEDS ORDERED: Vancomycin Random Level NOTE FOLLOW UP ONE (05:30)
[2024-08-24 06:09] LABS: ABS Basophils 0.1 10^3/uL (0.0-0.1); ABS Eosinophils 0.1 10^3/uL (0.0-0.5); ABS Lymphocytes 1.4 10^3/uL (1.0-4.8); ABS Monocytes 1.5 10^3/uL (0.0-1.1); ABS Neutrophils 7.6 10^3/uL (1.5-7.6); Hematocrit 35.1 % (38-53); Lymphocyte % 12.8 %; Mean Corpuscular Hemoglobin 31.8 pg (27-33); Mean Corpuscular Hgb Conc 34.2 g/dL (31-36); Mean Platelet Volume 8.3 fL (7.5-11.2); Platelet Count 277 10^3/uL (150-450); Red Blood Count 3.77 10^6/uL (4.06-5.63); Red Cell Distribution Width 13.4 % (12-17); White Blood Count 10.6 10^3/uL (3.6-10.2)
[2024-08-24 07:02] LABS: Anion Gap 10 mmol/L (2-16); Blood Urea Nitrogen 17 mg/dL (6-24); CO2 Carbon Dioxide 24 mmol/L (22-32); Calcium 8.3 mg/dL (8.6-10.3); Chloride 104 mmol/L (101-111); Creatinine, Serum 1.34 mg/dL (0.67-1.17); Glucose 101 mg/dL (70-100); Magnesium 1.7 mg/dL (1.9-2.7); Sodium 138 mmol/L (135-145); eGFR CKD-EPI 61.4 (>60)
[2024-08-24] MEDS: Magnesium Sulfate 2 gm BAG 2 GM/50 ML BAG IVPB ONE (08:18)
[2024-08-24] MEDS: Magnesium Sulfate IV 1GM/100ML 1 GM/100 ML BAG IV ONE (09:13)
[2024-08-24 15:46] LABS: Potassium Redraw 3.4 mmol/L (3.5-5.0)
[2024-08-24] MEDS: Potassium Chlor 20 meq TAB.ER PO ONE (20:48)
[2024-08-25] MEDS ORDERED: Potassium Chlor 20 meq TAB.ER PO SCH (09:00)
[2024-08-25 09:14] LABS: ABS Basophils 0.1 10^3/uL (0.0-0.1); ABS Eosinophils 0.2 10^3/uL (0.0-0.5); ABS Lymphocytes 1.3 10^3/uL (1.0-4.8); ABS Monocytes 1.4 10^3/uL (0.0-1.1); ABS Neutrophils 6.6 10^3/uL (1.5-7.6); Eosinophil % 2.3 %; Hemoglobin 11.4 g/dL (13.2-16.3); Lymphocyte % 13.7 %; Mean Corpuscular Hemoglobin 31.9 pg (27-33); Mean Corpuscular Hgb Conc 34.5 g/dL (31-36); Mean Corpuscular Volume 92.6 fL (80-97); Mean Platelet Volume 8.1 fL (7.5-11.2); Platelet Count 301 10^3/uL (150-450); Red Blood Count 3.56 10^6/uL (4.06-5.63); Red Cell Distribution Width 13.5 % (12-17); White Blood Count 9.6 10^3/uL (3.6-10.2)
[2024-08-25 09:45] LABS: Albumin 2.9 g/dL (3.2-5.2); Albumin/Globulin Ratio 1.2 (1-3); Calcium 8.1 mg/dL (8.6-10.3); Creatinine, Serum 1.41 mg/dL (0.67-1.17); Globulin 2.5 g/dL (2-4); Magnesium 1.8 mg/dL (1.9-2.7); Potassium 3.4 mmol/L (3.5-5.0); Total Bilirubin 0.5 mg/dL (0.2-1.0); Total Protein 5.4 g/dL (6.4-8.9); eGFR CKD-EPI 57.8 (>60)
[2024-08-25 10:23] VITALS: BP 124/77
[2024-08-27 17:57] LABS: Urine Collection Duration 24 h
== END 2024-08-25 14:25 | disposition home or self-care (01) | DRG 710 ==
LOC: ED 10:02 → EDHOLD 10:02 → MEDTELE 20:30 → ICU 08-17 11:15 → MEDTELE 08-24 10:22
PROVIDERS: ADMIT Student in an Organized Health Care Education/Training Program; ATTEND Family Medicine

== ENCOUNTER 2024-11-16 21:08 | Inpatient (IN) ==
[2024-11-16 22:06] LABS: High Sensitivity Troponin 3 Hr 144 pg/mL (<20)
[2024-11-16] MEDS: Enoxaparin 40 MG/0.4 ML SYR SUBCUT SCH (23:56)
[2024-11-16] MEDS ORDERED: Sulfur Hexaflouride MICROSPHR 25 MG VIAL IV PRN (23:57)
[2024-11-17] MEDS ORDERED: Polyethylene Glycol 3350 17 GM PACKET PO PRN (00:02)
[2024-11-17] MEDS: NS 0.9% 1000 ml BAG 1,000 ML IV SCH (00:46)
[2024-11-17] MEDS ORDERED: Buprenorphine 2 mg SL TAB SL PRN (01:46)
[2024-11-17] MEDS ORDERED: Buprenorphine 2 mg SL TAB ONE (02:00)
[2024-11-17] MEDS ORDERED: Ondansetron 4 mg VIAL 2 MG/ML 2 ml VIAL ONE (02:01)
[2024-11-17] MEDS: Ondansetron 4 mg VIAL 2 MG/ML 2 ml VIAL IV PRN (02:02)
[2024-11-17] MEDS ORDERED: Rocuronium 50 mg VIAL 10 mg/ml 5 ml VIAL (50 mg) ONE ×2 (02:06→02:14)
[2024-11-17] MEDS ORDERED: Succinylcholine 200 mg VIAL 20 mg/ml 10 ml VIAL (200 mg) ONE (02:07)
[2024-11-17] MEDS ORDERED: fentaNYL 100 mcg/2 ml 50 MCG/ML VIAL ONE (02:07)
[2024-11-17] MEDS ORDERED: Propofol 10 mg/ml 100 ML BTL 1,000 MG/100 ML BTL ONE (02:10)
[2024-11-17] MEDS ORDERED: fentaNYL 250 mcg/5 ml 50 MCG/ML 5 ml VIAL (250 MCG) ONE (02:14)
[2024-11-17] MEDS ORDERED: Etomidate 40 mg/20 ml (2 MG/ML) 20 ml VIAL (40 mg) ONE (02:14)
[2024-11-17] MEDS: fentaNYL 100 mcg/2 ml 50 MCG/ML VIAL IV SLOW PU ONE ×2 (02:14→04:11)
[2024-11-17] MEDS: Etomidate 20 mg/10 ml 2 MG/ML 10 ml VIAL IV ONE (02:15)
[2024-11-17] MEDS: Rocuronium 50 mg VIAL 10 mg/ml 5 ml VIAL (50 mg) IV ONE (02:16)
[2024-11-17] MEDS: Propofol 10 mg/ml 100 ML BTL 1,000 MG/100 ML BTL IV SCH (02:20)
[2024-11-17] MEDS: niCARdipine 0.1MG/ML IVPREMIX 20 MG/200 ML BAG IV SCH (02:53)
[2024-11-17 02:57] LABS: High Sensitivity Troponin 3 Hr 101 pg/mL (<20)
[2024-11-17 03:09] LABS: Urine Appearance Clear; Urine Bilirubin Negative (Negative); Urine Blood Negative (Negative); Urine Color Yellow; Urine Glucose Negative (Negative); Urine Ketones Trace (Negative); Urine Nitrite Negative (Negative); Urine Protein 1+ (>=30 mg/dL) (Negative); Urine Specific Gravity 1.018 (1.002-1.030); Urine Urobilinogen Negative (Negative)
[2024-11-17 03:12] LABS: Urine Bacteria Absent /HPF (Absent); Urine Red Blood Cell Absent /HPF (0-Trace); Urine White Blood Cell Absent /HPF (0-Trace)
[2024-11-17 03:49] LABS: Urine Benzodiazepine Screen Presumptive Positive (None Detect); Urine Cannabinoids Screen None Detected (None Detect); Urine Opiates Screen Presumptive Positive (None Detect)
[2024-11-17] MEDS: Iodixanol 320 (CONTRAST) 100 ML SDV IV ONE (04:08)
[2024-11-17] MEDS: Midazolam 5 mg/5 ml VIAL 1 mg/ml 5 ml VIAL (5 mg) IV SLOW PU PRN (04:18)
[2024-11-17 05:07] LABS: ABS Lymphocytes 0.9 10^3/uL (1.0-4.8); ABS Monocytes 0.6 10^3/uL (0.0-1.1); ABS Neutrophils 16.1 10^3/uL (1.5-7.6); ABS Nucleated RBC 0.01 10^3/ul; Eosinophil % 0.1 %; Hematocrit 35.5 % (38-53); Hemoglobin 12.3 g/dL (13.2-16.3); Lymphocyte % 4.9 %; Mean Corpuscular Hemoglobin 32.4 pg (27-33); Mean Corpuscular Hgb Conc 34.6 g/dL (31-36); Mean Corpuscular Volume 93.5 fL (80-97); Mean Platelet Volume 8.6 fL (7.5-11.2); Nucleated Red Blood Cells % 0.1 %/100WBC (0.0-0.8); Platelet Count 236 10^3/uL (150-450); Red Cell Distribution Width 14.4 % (12-17); White Blood Count 17.6 10^3/uL (3.6-10.2)
[2024-11-17] MEDS: Lactated Ringers 1000 ml BAG 1,000 ML IV ONE ×2 (05:16→23:28)
[2024-11-17 05:59] LABS: Albumin 3.9 g/dL (3.5-5.7); Albumin/Globulin Ratio 1.1 (1-3); Calcium 9.4 mg/dL (8.6-10.3); Creatinine, Serum 1.23 mg/dL (0.67-1.17); Globulin 3.6 g/dL (2-4); HDL Cholesterol 61.6 mg/dL; Magnesium 1.5 mg/dL (1.9-2.7); Potassium 2.6 mmol/L (3.5-5.0); Total Bilirubin 1.1 mg/dL (0.2-1.0); Total Protein 7.5 g/dL (6.4-8.9); eGFR CKD-EPI 68.1 (>60)
[2024-11-17] MEDS ORDERED: Zosyn per Pharmacy NOTE FOLLOW UP PRN (06:05)
[2024-11-17 06:11] LABS: TSH Ultra Thyroid Stim Horm 1.2 mcIU/mL (0.34-5.60)
[2024-11-17 06:33] LABS: PCO2 Arterial 36 mmHg (35-45); PO2 Arterial 77 mmHg (80-100)
[2024-11-17] MEDS: Magnesium Sulf 4 GM/100 ML IV 4,000 MG/100 ML BAG IVPB ONE (06:43)
[2024-11-17 06:45] LABS: Free T4 0.54 ng/dL (0.61-1.12)
[2024-11-17] MEDS: Piperacillin/Tazobac 3.375 BAG 3.375 GM/100 ML BAG IV ONE (07:45)
[2024-11-17] MEDS: Chlorhexidine MOUTHWASH 0.12% 15 ML UDC TOPICAL SCH (07:51)
[2024-11-17] MEDS: KCL 20 MEQ/100 ML IVPREMIX 20 MEQ/100 ML BAG IV SCH ×2 (08:05→12:08)
[2024-11-17] MEDS: Famotidine IV 10 MG/ML 2 ml VIAL (20 mg) IV SLOW PU SCH (08:24)
[2024-11-17] MEDS: DOXYcycline 100 MG in NS 0.9% 250 ml 250 ML IVPB SCH (08:44)
[2024-11-17] MEDS: ZOSYN 3.375 GM Q8H per EXTENDED INFUSION IV SCH (11:43)
[2024-11-17] MEDS: Pantoprazole VIAL 40 MG VIAL IV SCH (13:51)
[2024-11-17] MEDS: fentaNYL 100 mcg/2 ml 50 MCG/ML VIAL IV SLOW PU PRN (15:11)
[2024-11-17 18:05] LABS: Calcium 8.1 mg/dL (8.6-10.3); Creatinine, Serum 1.05 mg/dL (0.67-1.17); Potassium 3.7 mmol/L (3.5-5.0); eGFR CKD-EPI 82.3 (>60)
[2024-11-18] MEDS: COWS Protocol Daily Order Reminder FOLLOW UP SCH (01:12)
[2024-11-18] MEDS: fentaNYL 100 mcg/2 ml 50 MCG/ML VIAL IV SLOW PU PRN (02:41)
[2024-11-18 04:50] LABS: ABS Basophils 0.1 10^3/uL (0.0-0.1); ABS Lymphocytes 0.9 10^3/uL (1.0-4.8); ABS Monocytes 0.5 10^3/uL (0.0-1.1); ABS Neutrophils 11.4 10^3/uL (1.5-7.6); ABS Nucleated RBC 0.01 10^3/ul; Eosinophil % 0.3 %; Hematocrit 32.6 % (38-53); Hemoglobin 11.1 g/dL (13.2-16.3); Lymphocyte % 7.1 %; Mean Corpuscular Hemoglobin 31.9 pg (27-33); Mean Corpuscular Hgb Conc 33.9 g/dL (31-36); Mean Corpuscular Volume 94.1 fL (80-97); Mean Platelet Volume 8.5 fL (7.5-11.2); Platelet Count 211 10^3/uL (150-450); Red Blood Count 3.46 10^6/uL (4.06-5.63); Red Cell Distribution Width 14.7 % (12-17)
[2024-11-18 05:27] LABS: Albumin 3.3 g/dL (3.5-5.7); Calcium 8.3 mg/dL (8.6-10.3); Creatinine, Serum 1.05 mg/dL (0.67-1.17); Globulin 3.2 g/dL (2-4); Potassium 3.4 mmol/L (3.5-5.0); Total Bilirubin 0.6 mg/dL (0.2-1.0); Total Protein 6.5 g/dL (6.4-8.9); eGFR CKD-EPI 82.3 (>60)
[2024-11-18] MEDS: Polyethylene Glycol 3350 17 GM PACKET PO SCH (07:05)
[2024-11-18] MEDS: KCL 20 MEQ/100 ML IVPREMIX 20 MEQ/100 ML BAG IV SCH (07:05)
[2024-11-18 07:09] LABS: Magnesium 2.2 mg/dL (1.9-2.7)
[2024-11-19 04:26] LABS: ABS Basophils 0.1 10^3/uL (0.0-0.1); ABS Eosinophils 0.2 10^3/uL (0.0-0.5); ABS Lymphocytes 1.3 10^3/uL (1.0-4.8); ABS Monocytes 0.6 10^3/uL (0.0-1.1); Eosinophil % 1.5 %; Hematocrit 31.1 % (38-53); Hemoglobin 10.7 g/dL (13.2-16.3); Lymphocyte % 10.7 %; Mean Corpuscular Hemoglobin 32.5 pg (27-33); Mean Corpuscular Hgb Conc 34.5 g/dL (31-36); Mean Corpuscular Volume 94.3 fL (80-97); Mean Platelet Volume 8.4 fL (7.5-11.2); Platelet Count 206 10^3/uL (150-450); Red Cell Distribution Width 14.7 % (12-17); White Blood Count 12.1 10^3/uL (3.6-10.2)
[2024-11-19 04:58] LABS: Calcium 8.2 mg/dL (8.6-10.3); Creatinine, Serum 0.91 mg/dL (0.67-1.17); Magnesium 1.7 mg/dL (1.9-2.7); Potassium 3.6 mmol/L (3.5-5.0); eGFR CKD-EPI 97.7 (>60)
[2024-11-19] MEDS: Senna TAB 8.6 mg TAB PO PRN (08:22)
[2024-11-19] MEDS: Magnesium Sulfate 2 gm BAG 2 GM/50 ML BAG IVPB ONE (09:26)
[2024-11-19] MEDS: Acetaminophen IV 1 GM/100ML 1,000 MG/100 ML BAG IV PRN (17:02)
[2024-11-19] MEDS: Buprenorphine 2 mg SL TAB PO PRN (21:50)
[2024-11-20 04:44] LABS: ABS Basophils 0.1 10^3/uL (0.0-0.1); ABS Lymphocytes 1.8 10^3/uL (1.0-4.8); ABS Monocytes 0.8 10^3/uL (0.0-1.1); ABS Neutrophils 7.8 10^3/uL (1.5-7.6); ABS Nucleated RBC 0.01 10^3/ul; Eosinophil % 0.5 %; Hematocrit 33.1 % (38-53); Hemoglobin 11.3 g/dL (13.2-16.3); Lymphocyte % 16.9 %; Mean Corpuscular Hemoglobin 32.6 pg (27-33); Mean Corpuscular Hgb Conc 34.2 g/dL (31-36); Mean Corpuscular Volume 95.3 fL (80-97); Mean Platelet Volume 8.3 fL (7.5-11.2); Platelet Count 246 10^3/uL (150-450); Red Blood Count 3.47 10^6/uL (4.06-5.63); Red Cell Distribution Width 14.8 % (12-17); White Blood Count 10.5 10^3/uL (3.6-10.2)
[2024-11-20 05:01] LABS: Calcium 8.8 mg/dL (8.6-10.3); Creatinine, Serum 0.96 mg/dL (0.67-1.17); Potassium 3.3 mmol/L (3.5-5.0); eGFR CKD-EPI 91.6 (>60)
[2024-11-20] MEDS: Potassium EFFERVES 25 meq TAB PO ONE (07:37)
[2024-11-20] MEDS: Metoprolol Tartrate 5 mg VIAL 5 ml VIAL (1 mg/ml) IV PRN (15:01)
[2024-11-20] MEDS: niCARdipine 0.1MG/ML IVPREMIX 20 MG/200 ML BAG IV SCH (20:48)
[2024-11-20] MEDS: hydrALAZINE 20 mg/ml 1 ML Vial IV IV SLOW PU PRN (22:34)
[2024-11-21] MEDS: hydrALAZINE 20 mg/ml 1 ML Vial IV IV SLOW PU PRN (01:14)
[2024-11-21 04:37] LABS: Calcium 9.1 mg/dL (8.6-10.3); Creatinine, Serum 0.96 mg/dL (0.67-1.17); Magnesium 1.7 mg/dL (1.9-2.7); Potassium 3.5 mmol/L (3.5-5.0); eGFR CKD-EPI 91.6 (>60)
[2024-11-21 05:02] LABS: Hematocrit 33.6 % (38-53); Hemoglobin 11.1 g/dL (13.2-16.3); Mean Corpuscular Hemoglobin 31.6 pg (27-33); Mean Corpuscular Hgb Conc 33.1 g/dL (31-36); Mean Corpuscular Volume 95.6 fL (80-97); Mean Platelet Volume 8.7 fL (7.5-11.2); Platelet Count 286 10^3/uL (150-450); Red Blood Count 3.51 10^6/uL (4.06-5.63); Red Cell Distribution Width 14.5 % (12-17); White Blood Count 8.6 10^3/uL (3.6-10.2)
[2024-11-21 05:38] LABS: ABS Basophils 0.1 10^3/uL (0.0-0.1); ABS Eosinophils 0.1 10^3/uL (0.0-0.5); ABS Neutrophils 5.5 10^3/uL (1.5-7.6); ABS Nucleated RBC 0.02 10^3/ul; Lymphocyte % 22.6 %; Nucleated Red Blood Cells % 0.2 %/100WBC (0.0-0.8)
[2024-11-21] MEDS: Potassium EFFERVES 25 meq TAB PO ONE (07:41)
[2024-11-22 04:55] LABS: ABS Basophils 0.1 10^3/uL (0.0-0.1); ABS Eosinophils 0.1 10^3/uL (0.0-0.5); ABS Lymphocytes 1.4 10^3/uL (1.0-4.8); ABS Neutrophils 5.7 10^3/uL (1.5-7.6); ABS Nucleated RBC 0.01 10^3/ul; Eosinophil % 1.5 %; Hematocrit 32.2 % (38-53); Hemoglobin 10.8 g/dL (13.2-16.3); Lymphocyte % 16.8 %; Mean Corpuscular Hemoglobin 31.8 pg (27-33); Mean Corpuscular Hgb Conc 33.5 g/dL (31-36); Mean Platelet Volume 8.2 fL (7.5-11.2); Nucleated Red Blood Cells % 0.2 %/100WBC (0.0-0.8); Platelet Count 253 10^3/uL (150-450); Red Blood Count 3.39 10^6/uL (4.06-5.63); Red Cell Distribution Width 14.4 % (12-17); White Blood Count 8.2 10^3/uL (3.6-10.2)
[2024-11-22] MEDS: Metoprolol Tartrate 5 mg VIAL 5 ml VIAL (1 mg/ml) IV PRN (06:39)
[2024-11-22 16:17] VITALS: BP 157/54
== END 2024-11-22 16:30 | disposition home or self-care (01) | DRG 182 ==
LOC: ED 21:08 → EDHOLD 21:08 → ICU 11-17 05:25 → SUATTDRO 11-17 05:44 → MED 11-21 15:46
PROVIDERS: ADMIT Internal Medicine; ATTEND Internal Medicine